=== PATIENT | male | born 1970 ===

== ENCOUNTER 2021-11-13 03:15 | Emergency (ER) | payer BC ==
[2021-11-13] MEDS: methylPREDNISolone Sodium Succinate 125 MG/2 ML SDV IM ONE (03:30)
[2021-11-13] MEDS: Ketorolac 30 MG/ML SDV IM ONE (03:31)
[2021-11-13] MEDS: Ondansetron 4 MG Tab.DIS PO ONE (04:30)
[2021-11-13] MEDS: HYDROmorphone 0.5 MG/0.5 ML Syringe IM ONE (04:30)
== END 2021-11-13 04:36 | disposition home or self-care (01) ==
LOC: LL.ED 03:15
DX: M54.42 Lumbago with sciatica, left side (principal); F17.210 Nicotine dependence, cigarettes, uncomplicated
CPT/HCPCS: 96372; 99283; 99284; A9270-GY; J1170; J1885; J2930